=== PATIENT | male | born 1980 | race Caucasian/White ===

== ENCOUNTER 2017-08-30 12:32 | Observation (INO) | payer BC, OTHER ==
[~2017-08-30] VITALS: Ht 175.3 cm; Wt 111.1 kg
[2017-08-30] MEDS ORDERED: KETOROLAC 30 MG/ML VIAL IVP STA (14:51)
[2017-08-30] MEDS ORDERED: LACTATED RINGERS 1,000 ML IV ONE (14:51)
[2017-08-30 15:00] LABS: BASOPHILS % (AUTO) 0 % (0-10); EOSINOPHILS % (AUTO) 0 % (0-10); HEMATOCRIT 45 % (40-54); HEMOGLOBIN 15.9 G/DL (13.3-17.7); LYMPHOCYTES # (AUTO) 1.8 X 10^3 (1.0-4.0); LYMPHOCYTES % (AUTO) 16 % (12-44); MEAN CORPUSCULAR HEMOGLOBIN 30 PG (25-34); MEAN CORPUSCULAR HGB CONC 36 G/DL (32-36); MEAN CORPUSCULAR VOLUME 84 FL (80-99); MEAN PLATELET VOLUME 10.5 FL (7.4-10.4); MONOCYTES # (AUTO) 0.9 X 10^3 (0.0-1.0); MONOCYTES % (AUTO) 8 % (0-12); NEUTROPHILS # (AUTO) 8.4 X 10^3 (1.8-7.8); NEUTROPHILS % (AUTO) 76 % (42-75); PLATELET COUNT 261 10^3/uL (130-400); RED BLOOD COUNT 5.33 10^6/uL (4.35-5.85); RED CELL DISTRIBUTION WIDTH 13.3 % (10.0-14.5); WHITE BLOOD COUNT 11.1 10^3/uL (4.3-11.0)
[2017-08-30] MEDS ORDERED: ONDANSETRON 4 MG/2 ML (SDV) Z0FRAN IVP ONE (15:00)
--- NOTE | 2017-08-30 15:00 | ED Abdominal Pain ---
General Chief Complaint: Abdominal/GI Problems Stated Complaint: ABD PAIN Nursing Triage Note: UPPER ABD PAIN ONSET 2299 LAST NOC. WAS SEEN AT URGENT CARE ET TOLD TO COME TO ED THEY SAID HIS GALL BLADDER WAS BAD. DOES REPORT VOMITING LAST NOC. NONE TODAY Sepsis Screen: No Definite Risk Source of Information: Patient History of Present Illness Date Seen by Provider: Aug 30, 2017 Time Seen by Provider: 14:40 Initial Comments PT ARRIVES VIA POV--SENT HERE FROM [facility] PT C/O RUQ PAIN SINCE 2299 LAST PM BEGAN WHILE LAYING AND WATCHING TV PAIN RADIATES ALL THE WAY ACROSS UPPER ABDOMEN TO LUQ, TO RIGHT FLANK/ POSTERIOR RIBS AND SCAPULA PT STATES TODAY HAS ALSO RADIATED TO MID STERNUM PAIN WAS EXCRUCIATING FROM 2299 UNTIL 329--COULDN'T SIT STILL DUE TO PAIN-- PAIN WAS VERY SHARP WAS HAVING SEVERE NAUSEA AND VOMITED EVERY 20 MINUTES ALL NIGHT, UNTIL HE ONLY HAD DRY HEAVES. STATES PAIN WAS 10/10 AT WORST, HAS BEEN A CONSTANT DULL PAIN SINCE 329 NOTHING WORSENS OR IMPROVES PAIN NO PROBLEMS URINATING NO KNOWN FEVER, BUT STATES HE WAS TOLD AT [facility] THAT HE HAD A FEVER NO DIARRHEA OR CONSTIPATION ATE PIZZA FOR DINNER AROUND 1700 AND HAD CARA'S AROUND 2100 LAST PM HAS HAD MILDER, BRIEFER, SIMILAR EPISODES 2-3 TIMES IN LAST 2-3 MONTHS, NEVER SOUGHT CARE PCP: DR. JACQUES Allergies and Home Medications Allergies Coded Allergies: iodine (Verified Allergy, Unknown, 08/30/17) shellfish derived (Verified Allergy, Unknown, 08/30/17) Patient Home Medication List Home Medication List Reviewed: Yes Review of Systems Constitutional: see HPI Respiratory: No Symptoms Reported Cardiovascular: No Symptoms Reported Gastrointestinal: See HPI, Abdominal Pain, Denies Constipated, Denies Diarrhea , Nausea, Poor Appetite, Poor Fluid Intake, Vomiting Genitourinary: No Symptoms Reported Musculoskeletal: see HPI, back pain Skin: no symptoms reported Psychiatric/Neurological: No Symptoms Reported Endocrine: No Symptoms Reported Hematologic/Lymphatic: No Symptoms Reported Past Aumhcjw-Theyzg-Eqflun Hx Patient Social History Alcohol Use: Denies Use Recreational Drug Use: No Smoking Status: Current Everyday Smoker Type Used: Cigarettes Recent Foreign Travel: No Contact w/Someone Who Travel: No Recent Infectious Disease Expo: No Recent Hopitalizations: No Surgeries History of Surgeries: Yes (SEVERE RIGHT FOREARM LACERATION/REPAIR) Respiratory History of Respiratory Disorde: No Cardiovascular History of Cardiac Disorders: No Neurological History of Neurological Disord: No Genitourinary History of Genitourinary Disor: No Gastrointestinal History of Gastrointestinal Di: No Musculoskeletal History of Musculoskeletal Dis: No Endocrine History of Endocrine Disorders: No HEENT History of HEENT Disorders: No Cancer History of Cancer: No Psychosocial History of Psychiatric Problem: No Integumentary History of Skin or Integumenta: No Physical Exam Vital Signs VS - Last 72 Hours, by Label 08/30/17 13:31 Temp 98.6 Pulse 96 Resp 20 B/P (MAP) 136/84 (101) Pulse Ox 94 O2 Delivery Room Air Capillary Refill : Less Than 3 Seconds General Appearance: WD/WN, no apparent distress Respiratory: normal breath sounds, no respiratory distress, no accessory muscle use Cardiovascular: regular rate, rhythm, no edema, no murmur Gastrointestinal: normal bowel sounds, soft, no organomegaly, no pulsatile mass , No distended, No guarding, No rebound, tenderness (RUQ), No hernia, No mass Extremities: normal inspection Back: normal inspection, no CVA tenderness Neurologic/Psychiatric: multicultural internship II-XII nml as tested, no motor/sensory deficits, alert, normal mood/affect, oriented x 3 Skin: normal color, warm/dry Progress/Results/Core Measures Results/Orders Lab Results Laboratory Tests Test 08/30/17 14:41 08/30/17 15:15 Range/Units White Blood Count 11.1 H 4.3-11.0 10^3/uL Red Blood Count 5.33 4.35-5.85 10^6/uL Hemoglobin 15.9 13.3-17.7 G/DL Hematocrit 45 40-54 % Mean Corpuscular Volume 84 80-99 FL Mean Corpuscular Hemoglobin 30 25-34 PG Mean Corpuscular Hemoglobin Concent 36 32-36 G/DL Red Cell Distribution Width 13.3 10.0-14.5 % Platelet Count 261 130-400 10^3/uL Mean Platelet Volume 10.5 H 7.4-10.4 FL Neutrophils (%) (Auto) 76 H 42-75 % Lymphocytes (%) (Auto) 16 12-44 % Monocytes (%) (Auto) 8 0-12 % Eosinophils (%) (Auto) 0 0-10 % Basophils (%) (Auto) 0 0-10 % Neutrophils # (Auto) 8.4 H 1.8-7.8 X 10^3 Lymphocytes # (Auto) 1.8 1.0-4.0 X 10^3 Monocytes # (Auto) 0.9 0.0-1.0 X 10^3 Eosinophils # (Auto) 0.0 0.0-0.3 10^3/uL Basophils # (Auto) 0.0 0.0-0.1 10^3/uL Sodium Level 137 135-145 MMOL/L Potassium Level 3.7 3.6-5.0 MMOL/L Chloride Level 104 98-107 MMOL/L Carbon Dioxide Level 27 21-32 MMOL/L Anion Gap 6 5-14 MMOL/L Blood Urea Nitrogen 12 7-18 MG/DL Creatinine 0.95 0.60-1.30 MG/DL Estimat Glomerular Filtration Rate > 60 BUN/Creatinine Ratio 13 Glucose Level 131 H 70-105 MG/DL Calcium Level 9.1 8.5-10.1 MG/DL Total Bilirubin 1.2 H 0.1-1.0 MG/DL Aspartate Amino Transf (AST/SGOT) 23 5-34 U/L Alanine Aminotransferase (ALT/SGPT) 40 0-55 U/L Alkaline Phosphatase 73 40-136 U/L Total Protein 7.3 6.4-8.2 GM/DL Albumin 4.5 3.2-4.5 GM/DL Amylase Level 52 25-125 U/L Lipase 57 8-78 U/L Urine Color YELLOW Urine Clarity CLEAR Urine pH 6 5-9 Urine Specific [place] 1.025 H 1.016-1.022 Urine Protein 2+ H NEGATIVE Urine Glucose (UA) NEGATIVE NEGATIVE Urine Ketones NEGATIVE NEGATIVE Urine Nitrite NEGATIVE NEGATIVE Urine Bilirubin NEGATIVE NEGATIVE Urine Urobilinogen 1 NORMAL MG/DL Urine Leukocyte Esterase 1+ H NEGATIVE Urine RBC (Auto) 2+ H NEGATIVE Urine RBC 5-10 H /HPF Urine WBC 0-2 /HPF Urine Crystals NONE /LPF Urine Bacteria NONE /HPF Urine Casts NONE /LPF Urine Mucus MODERATE H /LPF Urine Culture Indicated NO My Orders Orders - JESSIE LAGUNAS DO Saline Lock/Iv-Start (08/30/17 14:51) Ct Abd/Pelvis Wo(Kidney Stone) (08/30/17 14:51) Amylase (08/30/17 14:51) Cbc With Automated Diff (08/30/17 14:51) Comprehensive Metabolic Panel (08/30/17 14:51) Lipase (08/30/17 14:51) Ua Culture If Indicated (08/30/17 14:51) Acute Abd Series (08/30/17 14:51) Saline Lock/Iv-Start (08/30/17 14:51) Ondansetron Injection (Zofran Injectio (08/30/17 15:00) Ketorolac Injection (Toradol Injection) (08/30/17 14:51) Saline Lock/Iv-Start (08/30/17 14:51) Lactated Ringers (Lr 1000 Ml Iv Solution (08/30/17 14:51) Piperacillin Sodium/Tazobactam (Zosyn Vi (08/30/17 16:30) Medications Given in ED Current Medications Medications Dose Ordered Sig/[place] Route Start Time Stop Time Status Last Admin Dose Admin Lactated Ringer's 1,000 ml @ 0 mls/hr Q0M ONCE IV 08/30/17 14:51 08/30/17 14:54 DC 08/30/17 15:14 0 MLS/HR Ondansetron HCl 4 mg ONCE ONCE IVP 08/30/17 15:00 08/30/17 15:01 DC 08/30/17 15:13 4 MG Vital Signs/I&O Vital Sign - Last 12Hours 08/30/17 13:31 Temp 98.6 Pulse 96 Resp 20 B/P (MAP) 136/84 (101) Pulse Ox 94 O2 Delivery Room Air Blood Pressure Mean: 101 Progress Note : Progress Note SYMPTOM-FREE WITH MEDICATIONS Diagnostic Imaging Comments CT ABDOMEN/PELVIS--MULTIPLE GALLSTONES, WITH 1.6 CM GALLSTONE AND NECK OF GB, WITH PERICHOLECYSTIC INFLAMMATORY CHANGES ABDOMEN XRAYS--NO ACUTE PROCESS PER RADIOLOGIST REPORTS @ 1600 Reviewed: Reviewed by Me Departure Communication (Admissions) Progress Notes 1604--PAGING DR. ALEX 1610--SPOKE WITH DR. ALEX, ACCEPTS PT FOR ADMIT. ORDERS NOTED. Impression Impression: Primary Impression: Cholelithiasis with cholecystitis Disposition: ADMITTED INPATIENT Condition: Improved Admissions Decision to Admit Reason: Admit from ER (General) Decision to Admit/Date: Aug 30, 2017 Time/Decision to Admit Time: 16:10 Departure-Patient Inst. Referrals: JESSIE DIAZ MD (PCP/Family) Primary Care Physician JESSIE LAGUNAS DO Aug 30, 2017 15:00
[2017-08-30 15:16] LABS: ALANINE AMINOTRANSFERASE 40 U/L (0-55); ALBUMIN 4.5 GM/DL (3.2-4.5); ALKALINE PHOSPHATASE 73 U/L (40-136); AMYLASE 52 U/L (25-125); BILIRUBIN,TOTAL 1.2 MG/DL (0.1-1.0); BUN/CREATININE RATIO 13; CALCIUM 9.1 MG/DL (8.5-10.1); CARBON DIOXIDE 27 MMOL/L (21-32); CHLORIDE 104 MMOL/L (98-107); CREATININE SERUM 0.95 MG/DL (0.60-1.30); GFR ESTIMATED > 60; GLUCOSE 131 MG/DL (70-105); LIPASE 57 U/L (8-78); POTASSIUM 3.7 MMOL/L (3.6-5.0); SODIUM 137 MMOL/L (135-145); TOTAL PROTEIN 7.3 GM/DL (6.4-8.2)
[2017-08-30 15:21] LABS: BILIRUBIN,URINE NEGATIVE (NEGATIVE); CLARITY,URINE CLEAR; COLOR,URINE YELLOW; GLUCOSE, URINE (UA) NEGATIVE (NEGATIVE); KETONES,URINE NEGATIVE (NEGATIVE); LEUKOCYTE ESTERASE ,URINE 1+ (NEGATIVE); NITRITE,URINE NEGATIVE (NEGATIVE); PH,URINE 6 (5-9); PROTEIN,URINE 2+ (NEGATIVE); UROBILINOGEN,URINE 1 MG/DL (NORMAL)
[2017-08-30 15:27] LABS: WBC,URINE 0-2 /HPF
--- NOTE | 2017-08-30 15:55 | Diagnostic Imaging Report ---
PROCEDURE: CT urinary tract, rule out kidney stone. TECHNIQUE: Multiple contiguous axial images were obtained through the abdomen and pelvis without the use of intravenous contrast. INDICATION: Right-sided abdominal pain with nausea and vomiting for two days. History of kidney stones. COMPARISON: CT from 02/22/2007. FINDINGS: There is mild atelectasis in the right lung base. Otherwise, the lungs are clear. The heart is normal in size. There is no pericardial effusion. The liver demonstrates no focal lesions. Multiple calcified gallstones are seen in the gallbladder, with one at the gallbladder neck measuring 1.6 cm in size. There is pericholecystic fat stranding. Calcified granulomas are seen in the spleen. The pancreas appears normal. The adrenal glands are normal. There is no hydronephrosis bilaterally. No renal calculi are seen. The bowel loops are nondistended without evidence of obstruction. The appendix is normal. There is diverticulosis of the descending colon and sigmoid colon without diverticulitis. No free fluid or free air is seen. No acute osseous abnormality is seen although there are mild degenerative changes in the spine. IMPRESSION: 1. Cholelithiasis with CT findings highly concerning for cholecystitis. 2. No renal calculi seen. 3. Colonic diverticulosis without diverticulitis. Dictated by: Dictated on workstation # [id number]
--- NOTE | 2017-08-30 15:56 | Diagnostic Imaging Report ---
PATIENT HISTORY: Right abdominal pain, history of kidney stones. TECHNIQUE: Frontal view of the chest. Frontal views of the abdomen. COMPARISON: CT from the same day. FINDINGS: There is minimal atelectasis in the right lung base. No focal consolidation is seen. The cardiomediastinal silhouette appears normal. There is no pleural effusion or pneumothorax. The bowel loops are nondistended without evidence of obstruction. There is moderate stool in the ascending and transverse colon. No large collection of free air seen. There are minimal degenerative changes in the hip joints. The calcified stones seen in the gallbladder are not well appreciated by radiography. IMPRESSION: 1. No evidence of bowel obstruction or large collection of free air. Dictated by: Dictated on workstation # [id number]
[2017-08-30] MEDS ORDERED: PIPERACILLIN SODIUM/TAZOBACTAM 4.5 GM in NS (IVPB) 100 ML IV ONE (16:30)
--- NOTE | 2017-08-30 17:42 | Diagnostic Imaging Report ---
PROCEDURE: US Gallbladder. TECHNIQUE: Multiple real-time grayscale images were obtained over the right upper quadrant in various projections. INDICATION: Gallstones. COMPARISON: CT from earlier the same day. FINDINGS: The liver is hyperechoic consistent with diffuse hepatic steatosis. No focal hepatic mass is seen. There is no biliary dilatation; however, the common bile duct is not well demonstrated. The pancreas is not well seen. There are multiple stones in the gallbladder, at least one of which may be lodged in the gallbladder neck. Gallbladder wall is mildly thickened measuring about 5 mm and there is suggestion of some minimal pericholecystic fluid. There is no sonographic Interiano's sign demonstrated. The right kidney measures 11.4 cm in length and appears unremarkable. There is no ascites. IMPRESSION: 1. Cholelithiasis with secondary signs suggestive of cholecystitis. Correlate clinically. 2. Diffuse hepatic steatosis. 3. No additional abnormality is seen. Limited visualization of the common bile duct and pancreas. Dictated by: Dictated on workstation # [id number]
[2017-08-30 19:00] VITALS: BP 113/68
[2017-08-30] MEDS ORDERED: ONDANSETRON 4 MG/2 ML (SDV) Z0FRAN IV PRN (20:15)
[2017-08-30] MEDS ORDERED: KETOROLAC 30 MG/ML VIAL IV PRN (20:15)
[2017-08-30] MEDS: D5 1/2 NS W/KCL 20 MEQ/L 1,000 ML IV SCH (20:58)
[2017-08-30] MEDS: PANTOPRAZOLE 40 MG/10 ML (PROTONIX) VIAL IV SCH (21:03)
[2017-08-30] MEDS: PIPERACILLIN SODIUM/TAZOBACTAM 4.5 GM in NS (IVPB) 100 ML IV SCH (22:39)
[2017-08-31] VITALS: BP 128/60
[2017-08-31 04:00] VITALS: BP 129/70
[2017-08-31] MEDS: D5 1/2 NS W/KCL 20 MEQ/L 1,000 ML IV SCH ×3 (04:17→16:37)
[2017-08-31] MEDS: PIPERACILLIN SODIUM/TAZOBACTAM 4.5 GM in NS (IVPB) 100 ML IV SCH (06:16)
[2017-08-31 06:23] LABS: BASOPHILS % (AUTO) 1 % (0-10); EOSINOPHILS # (AUTO) 0.3 10^3/uL (0.0-0.3); EOSINOPHILS % (AUTO) 4 % (0-10); HEMATOCRIT 40 % (40-54); HEMOGLOBIN 13.9 G/DL (13.3-17.7); LYMPHOCYTES # (AUTO) 1.7 X 10^3 (1.0-4.0); LYMPHOCYTES % (AUTO) 27 % (12-44); MEAN CORPUSCULAR HEMOGLOBIN 30 PG (25-34); MEAN CORPUSCULAR HGB CONC 35 G/DL (32-36); MEAN CORPUSCULAR VOLUME 85 FL (80-99); MEAN PLATELET VOLUME 10.2 FL (7.4-10.4); MONOCYTES # (AUTO) 0.6 X 10^3 (0.0-1.0); MONOCYTES % (AUTO) 11 % (0-12); NEUTROPHILS # (AUTO) 3.5 X 10^3 (1.8-7.8); NEUTROPHILS % (AUTO) 58 % (42-75); PLATELET COUNT 192 10^3/uL (130-400); RED BLOOD COUNT 4.65 10^6/uL (4.35-5.85); RED CELL DISTRIBUTION WIDTH 13.4 % (10.0-14.5)
[2017-08-31 07:02] LABS: ALANINE AMINOTRANSFERASE 30 U/L (0-55); ALBUMIN 3.7 GM/DL (3.2-4.5); ALKALINE PHOSPHATASE 55 U/L (40-136); AMYLASE 41 U/L (25-125); BILIRUBIN,TOTAL 1.4 MG/DL (0.1-1.0); BUN/CREATININE RATIO 11; CALCIUM 8.1 MG/DL (8.5-10.1); CARBON DIOXIDE 24 MMOL/L (21-32); CHLORIDE 107 MMOL/L (98-107); CREATININE SERUM 0.83 MG/DL (0.60-1.30); GFR ESTIMATED > 60; GLUCOSE 101 MG/DL (70-105); LIPASE 34 U/L (8-78); POTASSIUM 3.6 MMOL/L (3.6-5.0); SODIUM 137 MMOL/L (135-145)
[2017-08-31] MEDS ORDERED: INFLUENZA TRIvalent 2017-2018 0.5 ML/45 MCG SYR IM ONE (07:15)
[2017-08-31 08:00] VITALS: BP 119/65
[2017-08-31] MEDS ORDERED: ACET-2267 PO (08:04)
--- NOTE | 2017-08-31 08:45 | History & Physicial ---
History of Present Illness History of Present Illness Reason for visit/HPI ongoing right upper quadrant pain over a two-month period with persistent pain over the last 48 hours. ER visit has revealed gallstones with features of acute cholecystitis. His bilirubin is slightly elevated at 1.2. Date of Admission Aug 30, 2017 at 17:21 Date Seen by Provider: Aug 30, 2017 Time Seen by Provider: 16:45 I consulted on this patient on 08/31/17 08:42 Attending Physician Anastasia Bee MD Admitting Physician Rafael Hernandez MD Consult Allergies and Home Medications Allergies Coded Allergies: iodine (Verified Allergy, Unknown, 08/30/17) shellfish derived (Verified Allergy, Unknown, 08/30/17) Home Medications Acetaminophen 500 Mg Tablet, 500-1,000 MG PO Q6H PRN for PAIN-MILD, (Reported) Patient Home Medication List Home Medication List Reviewed: Yes Past Twsugbz-Jwuggg-Ficnxl Hx Patient Social History Marrital Status: Employed/Student: employed Alcohol Use: Denies Use Recreational Drug Use: No Smoking Status: Current Everyday Smoker Type Used: Cigarettes Physical Abuse Screen: No Sexual Abuse: No Recent Foreign Travel: No Contact w/other who traveled: No Recent Hopitalizations: No Recent Infectious Disease Expo: No Surgeries Yes (SEVERE RIGHT FOREARM LACERATION/REPAIR) Orthopedic Respiratory No Cardiovascular No Neurological No Genitourinary Yes Kidney Stones Gastrointestinal Yes Gastroesophageal Reflux Musculoskeletal Yes Arthritis Endocrine History of Endocrine Disorders: No HEENT History of HEENT Disorders: No Cancer No Psychosocial History of Psychiatric Problem: No Integumentary History of Skin or Integumenta: No Blood Transfusions History of Blood Disorders: No Family Medical History Family Hx: Alzheimer's disease paternal grandfather, Onset:Unknown Anemia G8 SISTER, Onset:Unknown Congenital heart disease paternal grandfather, Onset:Unknown Diabetes mellitus maternal grandmother, Onset:Unknown FH: colon cancer in first degree relative <60 years old 19 MOTHER, Onset:60 years & older FH: diverticulitis 19 FATHER, Onset:Unknown Constitutional: malaise EENTM: no symptoms reported Respiratory: no symptoms reported Cardiovascular: no symptoms reported Gastrointestinal: see HPI Genitourinary: no symptoms reported Musculoskeletal: no symptoms reported Skin: no symptoms reported Psychiatric/Neurological: No Symptoms Reported Physical Exam Vital Signs Vital Signs - First Documented 08/30/17 13:31 Temp 98.6 Pulse 96 Resp 20 B/P (MAP) 136/84 (101) Pulse Ox 94 O2 Delivery Room Air Capillary Refill : Less Than 3 Seconds General Appearance: Anxious, Mild Distress Neck: Normal Inspection, Supple Respiratory: Lungs Clear Cardiovascular: Regular Rate, Rhythm Gastrointestinal: Soft, Tenderness Back: Normal Inspection Extremity: Other Neurologic/Psychiatric: Alert, Oriented x3 Skin: Warm/Dry Comments surgical scar over the right forearm. No obvious deformity. Mild tenderness over the right upper quadrant. Assessment/Plan Assessment and Plan gentleman with complicated gallstone disease. She will receive intravenous antibiotics and undergo cholecystectomy in the morning. Details of surgery, expected recovery, complications of bile leak, potential for postoperative ERCP to address choledocholithiasis etc. discussed thoroughly. Seems to be in agreement to proceed Problems: Admission Diagnosis Admission Status: Observation Clinical Quality Measures DVT/VTE Risk/Contraindication: Risk Factor Score Per Nursin RFS Level Per Nursing on Admit: 3=High ANASTASIA BEE MD Aug 31, 2017 08:45
--- NOTE | 2017-08-31 08:46 | Progress Note-Pre Operative ---
Pre-Operative Progress Note H&P Reviewed The H&P was reviewed, patient examined and no changes noted. Date Seen by Provider: Aug 30, 2017 Time Seen by Provider: 16:45 Date H&P Reviewed: Aug 31, 2017 Time H&P Reviewed: 08:46 Pre-Operative Diagnosis: Gallstones with acute cholecystitis ANASTASIA ALEX MD Aug 31, 2017 08:46
[2017-08-31] MEDS ORDERED: metroNIDAZOLE 500MG/100ML IVPB 100 ML IV NR (09:00)
[2017-08-31] MEDS ORDERED: ceFAZolin 2 GM IV Premixed 50 ML IV NR (09:00)
[2017-08-31] MEDS ORDERED: BUP/EPI 0.5% 1:200,000 (SENSORCAINE) 30 ML VIAL ONE (10:15)
[2017-08-31] MEDS: PANTOPRAZOLE 40 MG/10 ML (PROTONIX) VIAL IV SCH (10:22)
[2017-08-31] MEDS ORDERED: DEXAMETHASONE 10 MG/ML (DECADRON) 1 ML VIAL ONE (10:33)
[2017-08-31] MEDS ORDERED: LIDOCAINE PF 2% 5 ML (XYLOCAINE) VIAL ONE (10:33)
[2017-08-31] MEDS ORDERED: ONDANSETRON 4 MG/2 ML (SDV) Z0FRAN ONE (10:33)
[2017-08-31] MEDS ORDERED: SEVOFLURANE (ULTANE) 15 ML INHAL SOLN ONE ×7 (10:33→13:08)
[2017-08-31] MEDS ORDERED: proPOfol 200 MG/20 ML (DIPRIVAN) VIAL IV ONE (10:33)
[2017-08-31] MEDS ORDERED: ROCURONIUM 10 MG/ML 5 ML SYRINGE IV ONE ×2 (10:33→11:57)
[2017-08-31] MEDS ORDERED: MIDAZOLAM 2 MG/2 ML (VERSED) VIAL ONE (10:34)
[2017-08-31] MEDS ORDERED: fentaNYL INJECTION 100 MCG/2 ML AMP ONE ×2 (10:34→11:45)
[2017-08-31] MEDS ORDERED: GLYCOPYRROLATE 0.2 MG/ML (ROBINUL) 2 ML VIAL ONE (10:34)
[2017-08-31] MEDS ORDERED: NEOSTIGMINE 1 MG/ML 5 ML SYRINGE ONE (10:34)
[2017-08-31] MEDS ORDERED: LACTATED RINGERS 1,000 ML IV PRN (12:10)
[2017-08-31] MEDS ORDERED: ONDANSETRON 4 MG/2 ML (SDV) Z0FRAN IVP PRN (12:15)
[2017-08-31] MEDS ORDERED: morphine INJ 10 MG/ML 1ML (SYR OR VIAL) IVP PRN (12:15)
--- NOTE | 2017-08-31 13:19 | Operative Report ---
Operative Report Date of Procedure/Surgery Aug 31, 2017 Surgeon (s) ANASTASIA ALEX MD Executive Meeting Manager (s): N/A Post-Operative Diagnosis Same Procedure Performed Robotic-assisted cholecystectomy Description of Procedure Anesthesia Type: General Estimated blood loss (mL): 50 Specimen(s) collected/removed Gallbladder Description of the Procedure Indication for the procedure: This gentleman presented with gallstones and features of acute cholecystitis. In brief course of intravenous antibiotics, he was offered cholecystectomy using minimally invasive technique with robotic assistance. His bilirubin was elevated and therefore possibility of choledocholithiasis was discussed with him. Informed consent was obtained after reviewing the operative details and complications of postoperative wound infection, bile leak and the potential for requiring ERCP. Description of the procedure: He was placed supine on the operating table and general anesthesia induced using an endotracheal tube. 2 g of Ancef and 500 mg of Flagyl were administered intravenously as prophylaxis against wound infection. Sequential compression devices were placed around his legs, to minimize the risk of venous thrombosis. Abdomen was prepared and draped in the usual sterile manner. A supraumbilical incision was made and pneumoperitoneum established using a Veress needle. Intra -abdominal pressure was maintained at 15 mmHg, using carbon dioxide insufflation. A 12 mm trocar was placed and anatomy visualized using the high definition, 3-dimensional laparoscope associated with da Shayla system. Gallbladder was obscured by omentum wrapped around it. Under direct view, I placed an 8 mm trocar over each side of the abdomen, followed by a 5 mm trocar over the left subcostal region. The patient was then turned in the reverse Trendelenburg position, with the right-sided The robotic system was in place. I omentum was gently displaced out of the way, revealing an elongated and acutely inflamed gallbladder. The fundus was retracted cephalad and the neck of the gallbladder grasped with Cadiere sepsis. By careful dissection, inflamed tissue around Calot's angle was dissected using the hook cautery, delineating the cystic duct and artery. Both were controlled between locking clips. Cholecystectomy was then completed using the same device. Subhepatic space was irrigated with saline and the gallbladder placed in an Endo Catch bag , being removed via the supraumbilical trocar site. The fascia over this incision was closed using #1 Vicryl sutures, using the Prem Christiansen device. Skin incisions were closed using 4-0 Vicryl, in a subcuticular fashion. 0.5 percent Marcaine with epinephrine was infiltrated along the incisions, both preemptively and at the conclusion of the operation. He tolerated the procedure well, was extubated in the operating room and taken to the recovery room in a stable condition. Findings of the Procedure See op report Allergies and Home Medications Allergies Coded Allergies: iodine (Verified Allergy, Unknown, 08/30/17) shellfish derived (Verified Allergy, Unknown, 08/30/17) Home Medications Acetaminophen 500 Mg Tablet, 500-1,000 MG PO Q6H PRN for PAIN-MILD, (Reported) Patient Home Medication List Home Medication List Reviewed: Yes ANASTASIA ALEX MD Aug 31, 2017 1:19 pm
[2017-08-31] MEDS ORDERED: ACHD5005 PO (13:20)
--- NOTE | 2017-08-31 13:21 | Discharge Inst-Simple/Standard ---
Discharge Inst-Standard Discharge Medications New, Converted or Re-Newed RX: RX on Chart Patient Instructions/Follow Up Plan of Care/Instructions/FU: Band-Aids off in 48 hours. Incentive spirometry. Follow-up in 2 weeks. Activity as Tolerated: Yes Discharge Diet: No Restrictions ANASTASIA ALEX MD Aug 31, 2017 1:21 pm
[2017-08-31] MEDS: HYDROmorphone (DILAUDID) 2 MG/ML VIAL IVP PRN ×3 (13:47→14:07)
--- NOTE | 2017-08-31 13:50 | Anesthesia-General Post-Op ---
General Patient Condition Mental Status/LOC: Same as Preop Cardiovascular: Satisfactory Nausea/Vomiting: Absent Respiratory: Satisfactory Pain: Controlled Complications: Absent Post Op Complications Complications None Follow Up Care/Instructions Patient Instructions None needed. Anesthesia/Patient Condition Patient Condition Patient is doing well, no complaints, stable vital signs, no apparent adverse anesthesia problems. No complications reported per nursing. D/C home per [facility] Criteria: No CYNTHIA HARRISON CRNA Aug 31, 2017 13:50
[2017-08-31 14:40] VITALS: BP 136/78
[2017-08-31 15:30] VITALS: BP 134/83
[2017-08-31] MEDS: fentaNYL INJECTION 100 MCG/2 ML AMP IV PRN ×2 (15:45→17:58)
[2017-08-31 18:30] VITALS: BP 134/83
== END 2017-08-31 18:30 | disposition home or self-care (01) ==
LOC: EDUNIT# 12:32 → ER 12:34 → 4TH 17:21
PROVIDERS: ADMIT Surgery; ATTEND Surgery
DX: K80.00 Calculus of gallbladder with acute cholecystitis without obstruction (principal); F17.210 Nicotine dependence, cigarettes, uncomplicated; K21.9 Gastro-esophageal reflux disease without esophagitis; Z87.442 Personal history of urinary calculi
CPT/HCPCS: 36415; 74022; 74176; 76705; 80053; 81000; 82150; 82962; 83690; 85025; 87081; 94664; 96365; 96375; G0378

== ENCOUNTER → 2018-12-23 | Outpatient (CLI) | payer OTHER ==
[~2018-12-23] MED LIST: ACET-2267 PO; ACHD5005 PO
--- NOTE | 2018-12-23 19:30 | Diagnostic Imaging Report ---
INDICATION: Left-sided epididymitis. FINDINGS: Small simple hydroceles are present bilaterally and there is likely a small left-sided varicocele. Color Doppler blood flow to both testicles and epididymides unremarkable. There are no findings of orchitis or features of convincing evidence for epididymitis. No torsion. No mass. No pyocele or abscess. IMPRESSION: Small simple hydroceles and small left varicocele. No acute-appearing abnormality. Dictated by: Dictated on workstation # [id number]
== END ==
LOC: RAD 12:38
PROVIDERS: ATTEND Urology
DX: N45.1 Epididymitis (principal); N43.3 Hydrocele, unspecified; I86.1 Scrotal varices
CPT/HCPCS: 76870